=== PATIENT | male | born 1950 | race Caucasian/White ===

== ENCOUNTER → 2017-04-11 09:57 | Outpatient (CLI) | payer OTHER, MEDICARE, SELFPAY ==
[2017-04-11 10:59] LABS: Anion Gap 8 (5-15); BUN 24 mg/dL (7-18); BUN/Creat Ratio 34.2 RATIO (10-20); Calcium,Total 8.7 mg/dL (8.5-10.1); Chloride 106 mmol/L (98-107); EST Glomerular Filtration Rate 119 mL/min (>60); Est Glom Filt Rate - Afr Amer 144 mL/min (>60); Glucose 90 mg/dL (74-106); Potassium 3.5 mmol/L (3.5-5.1); Sodium Level 141 mmol/L (136-145)
== END ==
PROVIDERS: Family Provider Family Medicine; PCP Family Medicine; Visit Provider Internal Medicine Endocrinology, Diabetes & Metabolism
DX: E89.0 Postprocedural hypothyroidism (principal)
CPT/HCPCS: 36415; 80048; 84443

== ENCOUNTER → 2017-04-30 15:18 | Outpatient (CLI) | payer OTHER, SELFPAY ==
[2017-04-30 16:52] LABS: Absolute Lymphocyte Count 2.31 X10^3/ul (0.83-4.51); Absolute Neutrophil Count 2.9 X10^3/uL (2.0-7.7); Basophil# 0.01 X10^3/uL; Basophil% 0.2 % (0-1); Eosinophil# 0.38 X10^3/uL; Eosinophils% 6.3 % (0-5); Hematocrit 45.1 % (40-54); Hemoglobin 15.4 g/dl (13.0-16.5); Lymphocyte # 2.31 X10^3/ul (4.0); Lymphocyte % 38.1 % (19-41); Mean Corp Hgb Conc 34.1 g/gl (32-36); Mean Corpuscular Volume 87.7 fL (80-94); Mean Platelet Vol. 10.7 fl (6.2-12.0); Monocyte# 0.47 X10^3/uL; Monocyte% 7.8 % (0-10); Neutrophil # 2.88 X10^3/uL (2.7-7.7); Neutrophil % 47.4 % (47-70); Platelet Count 289 K/mm3 (150-450); RBC Distribution Width CV 13.2 % (11.6-14.6); Red Blood Count 5.14 M/mm3 (4.6-6.2); White Blood Count 6.1 K/mm3 (4.4-11.0)
[2017-04-30 16:53] LABS: POSITIVE COUNT NO; POSITIVE DIFFERENTIAL NO; POSITIVE MORPHOLOGY NO
[2017-04-30 17:15] LABS: ALB/GLOB Ratio 1.1 RATIO (0.9-2.4); AST(SGOT) 32 U/L (15-37); Alanine Aminotransfer ALT/SGPT 43 U/L (16-61); Albumin, Serum 3.8 g/dL (3.2-5.0); Alkaline Phosphatase 75 U/L (45-117); Anion Gap 7 (5-15); BUN 14 mg/dL (7-18); BUN/Creat Ratio 22.8 RATIO (10-20); Calcium,Total 8.5 mg/dL (8.5-10.1); Chloride 107 mmol/L (98-107); Creatinine, Serum 0.62 mg/dL (0.70-1.30); EST Glomerular Filtration Rate 139 mL/min (>60); Est Glom Filt Rate - Afr Amer 168 mL/min (>60); Globulin 3.6 g/dL (2.2-4.2); Glucose 115 mg/dL (74-106); Potassium 3.5 mmol/L (3.5-5.1); Protein, Total 7.4 g/dL (6.4-8.2); Sodium Level 141 mmol/L (136-145)
== END ==
PROVIDERS: Family Provider Family Medicine; PCP Family Medicine
DX: Z79.899 Other long term (current) drug therapy (principal)
CPT/HCPCS: 36415; 80053; 85025

== ENCOUNTER 2017-05-17 10:35 | Outpatient (RCR) | payer OTHER, SELFPAY ==
--- NOTE | 2017-05-17 11:36 | HP.OTEVAL ---
Patient's Visit Information NIC CAMPOS is a 66 year old M, referred to Occupational Therapy by DR.SMURRA Radha, with a diagnosis of left hand pain. Date of Evaluation: 05/17/17 Occupational Therapist: Lucy Abdi, AMANDAR/Nicola, CHT - Subjective Subjective: pt states his first sign of MS was in 1977 PT states he was dx with MS in 1995 and MS increased in 1997. Pt states his mom and uncle on dads side had MS- pt states he has been using his left hand as a assistive hand for about 10 years. pt states he was mowing the grass about two years ago but has not been able to due to LE weakness- pt states he can no hold anything his left hand for the past 5 years or better. Pt states he has a wrist brace but does not like to use it. - Strength Application Developer Manager: right 75# left 15# Lateral Pinch: right 16# left unable Tripod Pinch: NT left NT - Sensation Sensation Comments: denies at this time - DASH-Disabilities of Arm, Shoulder& Hand DASH Sum: 112 - Goals Goal:: pt will demo a increase in left can pusher sterength by 20# or greater to increase the ability to hold objects for BADLS. Goal:: pt will demo the ability to moss picker and hold a number of different size [id number] increase pts ind. with use of left hand as assistive hand for BADLS - Rehabilitation General Assessment: pt demo left wrist tenodisis grasp and release with his left hand- this is weak and limits pts ability to hold objects. Rehabilitation Potential: Fair - Anticipated Interventions Anticipated Interventions: Strengthening, Orthoses, Education re assistive Equipment - Visit Plan Frequency: 1-2x /Week Duration: 4 Weeks General Plan: will initiate OT services 1-2xweek for 4 weeks to assist with pts strength recovery to engage left UE in use with BADLS and IADL tasks. will work with increasing strenght and ad. modification as needed.- orthosis as needed to prevent skin break down TEXT: Thank you for the opportunity to evaluate your patient. For Medicare and Medicare HMO plans, please review the plan of care and approve it. It will need to be FAXED BACK to us at [phone] for Medicare purposes. Please let me know if there are questions or concerns regarding this plan of care. Physician Signature: Date:
--- NOTE | 2017-07-17 13:38 | HP.OT.NRP ---
HP - Discharge Summary - Patient Information NIC CAMPOS was seen in my office for initial evaluation on 05/17/17. The following Plan of Care was established for this patient: Initial Frequency: 1-2x /Week Initial Duration: 4 Weeks - Anticipated Interventions Anticipated Interventions: Strengthening, Orthoses, Education re assistive Equipment This patient was last seen in our office 05/17/17. Pertinent comments regarding their Occupational therapy will appear below: Pt was seen for eval only- he did not schedule any further apts- pt d/c due to non attendance At this point I will be discontinuing this patient from occupational therapy. I would be happy to see this patient again in the future if found appropriate by the physician. Thank you! Lucy Abdi, OTR/L, CHT
== END 2017-05-17 19:00 | disposition home or self-care (01) ==
LOC: OT 10:35
PROVIDERS: Family Provider Family Medicine; PCP Family Medicine; Visit Provider Family Medicine
DX: M79.642 Pain in left hand (principal)
CPT/HCPCS: 97166

== ENCOUNTER → 2017-07-20 09:25 | Outpatient (CLI) | payer OTHER, SELFPAY ==
[2017-07-20 10:14] LABS: Absolute Lymphocyte Count 1.57 X10^3/ul (0.83-4.51); Absolute Neutrophil Count 3.2 X10^3/uL (2.0-7.7); Basophil# 0.02 X10^3/uL; Basophil% 0.4 % (0-1); Eosinophil# 0.27 X10^3/uL; Eosinophils% 4.8 % (0-5); Hematocrit 44.8 % (40-54); Hemoglobin 15.4 g/dl (13.0-16.5); Lymphocyte # 1.57 X10^3/ul (4.0); Lymphocyte % 27.7 % (19-41); Mean Corp Hgb Conc 34.4 g/gl (32-36); Mean Corpuscular Hgb 29.7 pg (27.0-32.0); Mean Corpuscular Volume 86.3 fL (80-94); Mean Platelet Vol. 10.5 fl (6.2-12.0); Monocyte# 0.55 X10^3/uL; Monocyte% 9.7 % (0-10); Neutrophil # 3.24 X10^3/uL (2.7-7.7); Neutrophil % 57.2 % (47-70); Platelet Count 275 K/mm3 (150-450); RBC Distribution Width SD 40.4 fl (35.1-43.9); Red Blood Count 5.19 M/mm3 (4.6-6.2); White Blood Count 5.7 K/mm3 (4.4-11.0)
[2017-07-20 10:18] LABS: POSITIVE COUNT NO; POSITIVE DIFFERENTIAL NO; POSITIVE MORPHOLOGY NO
[2017-07-20 10:43] LABS: ALB/GLOB Ratio 1.1 RATIO (0.9-2.4); AST(SGOT) 28 U/L (15-37); Alanine Aminotransfer ALT/SGPT 45 U/L (16-61); Albumin, Serum 3.8 g/dL (3.2-5.0); Alkaline Phosphatase 79 U/L (45-117); Anion Gap 9 (5-15); BUN 22 mg/dL (7-18); BUN/Creat Ratio 30.8 RATIO (10-20); Calcium,Total 8.6 mg/dL (8.5-10.1); Chloride 109 mmol/L (98-107); Creatinine, Serum 0.72 mg/dL (0.70-1.30); EST Glomerular Filtration Rate 117 mL/min (>60); Est Glom Filt Rate - Afr Amer 141 mL/min (>60); Globulin 3.4 g/dL (2.2-4.2); Glucose 113 mg/dL (74-106); Potassium 3.8 mmol/L (3.5-5.1); Protein, Total 7.2 g/dL (6.4-8.2); Sodium Level 141 mmol/L (136-145); Thyroid Stim Hormone (TSH) 0.83 uIU/mL (0.358-3.74)
== END ==
PROVIDERS: Family Provider Family Medicine; PCP Family Medicine
DX: Z79.899 Other long term (current) drug therapy (principal)
CPT/HCPCS: 36415; 80053; 84443; 85025

== ENCOUNTER → 2017-10-03 08:30 | Outpatient (CLI) | payer OTHER, SELFPAY ==
[2017-10-03 10:10] LABS: ALB/GLOB Ratio 1.2 RATIO (0.9-2.4); AST(SGOT) 34 U/L (15-37); Alanine Aminotransfer ALT/SGPT 50 U/L (16-61); Albumin, Serum 4.1 g/dL (3.2-5.0); Alkaline Phosphatase 76 U/L (45-117); Anion Gap 9 (5-15); BUN 17 mg/dL (7-18); BUN/Creat Ratio 18.3 RATIO (10-20); Calcium,Total 9.3 mg/dL (8.5-10.1); Chloride 106 mmol/L (98-107); Creatinine, Serum 0.93 mg/dL (0.70-1.30); EST Glomerular Filtration Rate 86 mL/min (>60); Est Glom Filt Rate - Afr Amer 104 mL/min (>60); Globulin 3.5 g/dL (2.2-4.2); Glucose 93 mg/dL (74-106); PSA,Total - Annual Screen 0.55 ng/mL (0.00-4.00); Potassium 4.2 mmol/L (3.5-5.1); Protein, Total 7.6 g/dL (6.4-8.2); Sodium Level 142 mmol/L (136-145)
== END ==
PROVIDERS: Family Provider Family Medicine; PCP Family Medicine; Visit Provider Nurse Practitioner Adult Health
DX: E87.6 Hypokalemia (principal); Z12.5 Encounter for screening for malignant neoplasm of prostate
CPT/HCPCS: 36415; 80053; 84153; G0103

== ENCOUNTER → 2017-11-22 10:14 | Outpatient (CLI) | payer OTHER, SELFPAY ==
[2017-11-22 11:01] LABS: Absolute Lymphocyte Count 1.95 X10^3/ul (0.83-4.51); Absolute Neutrophil Count 3.4 X10^3/uL (2.0-7.7); Basophil# 0.03 X10^3/uL; Basophil% 0.5 % (0-1); Eosinophil# 0.29 X10^3/uL; Eosinophils% 4.9 % (0-5); Hematocrit 45.8 % (40-54); Hemoglobin 15.4 g/dl (13.0-16.5); Lymphocyte # 1.95 X10^3/ul (4.0); Lymphocyte % 32.8 % (19-41); Mean Corp Hgb Conc 33.6 g/gl (32-36); Mean Corpuscular Hgb 29.6 pg (27.0-32.0); Mean Corpuscular Volume 87.9 fL (80-94); Mean Platelet Vol. 10.4 fl (6.2-12.0); Neutrophil # 3.37 X10^3/uL (2.7-7.7); Neutrophil % 56.6 % (47-70); Platelet Count 282 K/mm3 (150-450); RBC Distribution Width SD 41.8 fl (35.1-43.9); Red Blood Count 5.21 M/mm3 (4.6-6.2)
[2017-11-22 11:03] LABS: POSITIVE COUNT NO; POSITIVE DIFFERENTIAL NO; POSITIVE MORPHOLOGY NO
[2017-11-22 11:29] LABS: ALB/GLOB Ratio 1.2 RATIO (0.9-2.4); AST(SGOT) 35 U/L (15-37); Alanine Aminotransfer ALT/SGPT 61 U/L (16-61); Albumin, Serum 3.9 g/dL (3.2-5.0); Alkaline Phosphatase 73 U/L (45-117); Anion Gap 9 (5-15); BUN 23 mg/dL (7-18); BUN/Creat Ratio 30.9 RATIO (10-20); Calcium,Total 9.2 mg/dL (8.5-10.1); Chloride 107 mmol/L (98-107); Creatinine, Serum 0.74 mg/dL (0.70-1.30); EST Glomerular Filtration Rate 111 mL/min (>60); Est Glom Filt Rate - Afr Amer 135 mL/min (>60); Globulin 3.3 g/dL (2.2-4.2); Glucose 111 mg/dL (74-106); Potassium 3.7 mmol/L (3.5-5.1); Protein, Total 7.2 g/dL (6.4-8.2); Sodium Level 144 mmol/L (136-145)
== END ==
PROVIDERS: Family Provider Family Medicine; PCP Family Medicine; Referring Provider Internal Medicine; Visit Provider Internal Medicine
DX: G35 Multiple sclerosis (principal)
CPT/HCPCS: 36415; 80053; 85025

== ENCOUNTER → 2018-01-13 08:47 | Outpatient (CLI) | payer OTHER, SELFPAY ==
[2018-01-13 10:09] LABS: Absolute Lymphocyte Count 1.65 X10^3/ul (0.83-4.51); Absolute Neutrophil Count 3.9 X10^3/uL (2.0-7.7); Basophil# 0.03 X10^3/uL; Basophil% 0.5 % (0-1); Eosinophil# 0.38 X10^3/uL; Eosinophils% 5.7 % (0-5); Hemoglobin 15.5 g/dl (13.0-16.5); Lymphocyte # 1.65 X10^3/ul (4.0); Lymphocyte % 24.8 % (19-41); Mean Corp Hgb Conc 33.7 g/gl (32-36); Mean Corpuscular Volume 89.1 fL (80-94); Mean Platelet Vol. 11.1 fl (6.2-12.0); Monocyte% 10.5 % (0-10); Neutrophil # 3.89 X10^3/uL (2.7-7.7); Neutrophil % 58.3 % (47-70); POSITIVE COUNT NO; POSITIVE DIFFERENTIAL NO; POSITIVE MORPHOLOGY NO; Platelet Count 289 K/mm3 (150-450); RBC Distribution Width CV 13.1 % (11.6-14.6); RBC Distribution Width SD 42.3 fl (35.1-43.9); Red Blood Count 5.16 M/mm3 (4.6-6.2); White Blood Count 6.7 K/mm3 (4.4-11.0)
[2018-01-13 10:58] LABS: ALB/GLOB Ratio 1.1 RATIO (0.9-2.4); AST(SGOT) 29 U/L (15-37); Alanine Aminotransfer ALT/SGPT 52 U/L (16-61); Albumin, Serum 4.1 g/dL (3.2-5.0); Alkaline Phosphatase 80 U/L (45-117); Anion Gap 13 (5-15); BUN 31 mg/dL (7-18); BUN/Creat Ratio 39.3 RATIO (10-20); Calcium,Total 9.4 mg/dL (8.5-10.1); Chloride 105 mmol/L (98-107); Creatinine, Serum 0.79 mg/dL (0.70-1.30); EST Glomerular Filtration Rate 104 mL/min (>60); Est Glom Filt Rate - Afr Amer 126 mL/min (>60); Globulin 3.6 g/dL (2.2-4.2); Glucose 90 mg/dL (74-106); Potassium 3.8 mmol/L (3.5-5.1); Protein, Total 7.7 g/dL (6.4-8.2); Sodium Level 143 mmol/L (136-145)
== END ==
PROVIDERS: Family Provider Family Medicine; PCP Family Medicine
DX: Z79.899 Other long term (current) drug therapy (principal)
CPT/HCPCS: 36415; 80053; 85025

== ENCOUNTER → 2018-02-26 10:40 | Outpatient (CLI) | payer OTHER, SELFPAY ==
[2018-02-26 12:04] LABS: Anion Gap 7 (5-15); BUN 19 mg/dL (7-18); Calcium,Total 8.9 mg/dL (8.5-10.1); Chloride 106 mmol/L (98-107); Creatinine, Serum 0.76 mg/dL (0.70-1.30); EST Glomerular Filtration Rate 108 mL/min (>60); Est Glom Filt Rate - Afr Amer 131 mL/min (>60); Glucose 86 mg/dL (74-106); Potassium 3.9 mmol/L (3.5-5.1); Sodium Level 141 mmol/L (136-145); Thyroid Stim Hormone (TSH) 1.82 uIU/mL (0.358-3.74)
== END ==
PROVIDERS: Family Provider Family Medicine; PCP Family Medicine; Referring Provider Internal Medicine Endocrinology, Diabetes & Metabolism; Visit Provider Internal Medicine Endocrinology, Diabetes & Metabolism
DX: E89.0 Postprocedural hypothyroidism (principal)
CPT/HCPCS: 36415; 80048; 84443

== ENCOUNTER → 2018-02-27 07:53 | Outpatient (CLI) | payer OTHER, SELFPAY ==
--- NOTE | 2018-02-27 07:55 | US_ITS ---
STUDY: RENAL ULTRASOUND - COMPLETE REASON FOR EXAM: Male, 67 years old. Urinary retention. TECHNIQUE: Ultrasound evaluation of the kidneys was performed with real-time and static hoffmann-scale imaging. COMPARISON: CT chest 10/22/2014, 10/08/2013. FINDINGS: RIGHT KIDNEY: 11.4 x 4.6 x 5.5 cm with normal cortical thickness 2.3 cm, normal cortical echotexture. No mass, or cyst, no hydronephrosis. Small calcified densities are present in the renal hilum which could be tiny vascular calcifications or tiny nonobstructing calyceal calculi. LEFT KIDNEY: 10.9 x 4.7 x 6.5 cm with normal cortical thickness 2.1 cm, normal cortical echotexture. No mass, cyst or hydronephrosis. Small hilar calcifications may reflect nonobstructing calyceal calculus or vascular calcification. BLADDER: The urinary bladder is normal in caliber, contour and wall thickness. Maximal thickness 3 mm. Pre-void volume 539 mL. Postvoid 82 mL. Bilateral ureteral jets are visible. US/Kidney and Bladder IMPRESSION: Moderate postvoid residual. Morphologically normal appearance of the urinary bladder with normal wall thickness, without trabeculation. Renal hilar small calcifications may reflect nonobstructing calyceal calculi or vascular calcifications. No hydronephrosis. Otherwise normal kidneys. Electronically Signed: Amarjit Terry MD at 17:57 EST Tel , Service support ,
== END ==
PROVIDERS: Family Provider Family Medicine; PCP Family Medicine; Referring Provider Nurse Practitioner Adult Health; Visit Provider Nurse Practitioner Adult Health
DX: R33.9 Retention of urine, unspecified (principal)
CPT/HCPCS: 76770

== ENCOUNTER → 2018-08-09 11:00 | Outpatient (CLI) | payer MEDICARE, OTHER, SELFPAY ==
[2018-08-09 12:18] LABS: ALB/GLOB Ratio 1.1 RATIO (0.9-2.4); AST(SGOT) 29 U/L (15-37); Alanine Aminotransfer ALT/SGPT 46 U/L (16-61); Alkaline Phosphatase 69 U/L (45-117); Anion Gap 2 (5-15); BUN 19 mg/dL (7-18); BUN/Creat Ratio 23.8 RATIO (10-20); Calcium,Total 9.5 mg/dL (8.5-10.1); Chloride 105 mmol/L (98-107); EST Glomerular Filtration Rate 102 mL/min (>60); Est Glom Filt Rate - Afr Amer 124 mL/min (>60); Globulin 3.7 g/dL (2.2-4.2); Glucose 108 mg/dL (74-106); Potassium 3.9 mmol/L (3.5-5.1); Protein, Total 7.7 g/dL (6.4-8.2); Sodium Level 137 mmol/L (136-145); Thyroid Stim Hormone (TSH) 4.51 uIU/mL (0.358-3.74)
== END ==
PROVIDERS: Family Provider Family Medicine; PCP Family Medicine; Referring Provider Internal Medicine Endocrinology, Diabetes & Metabolism; Visit Provider Internal Medicine Endocrinology, Diabetes & Metabolism
DX: E89.0 Postprocedural hypothyroidism (principal)
CPT/HCPCS: 36415; 80053; 84443

== ENCOUNTER 2020-04-25 06:25 | Outpatient (RCR) | payer MEDICARE, OTHER, SELFPAY ==
[2019-11-18 10:25] VITALS: BMI 27.0
== END 2020-04-25 23:59 ==
LOC: IMMUN 06:25
PROVIDERS: PCP Family Medicine; Visit Provider Family Medicine
DX: Z23 Encounter for immunization (principal)
CPT/HCPCS: 0011A; 0012A

== ENCOUNTER → 2020-11-24 10:31 | Outpatient (CLI) | payer MEDICARE, OTHER, SELFPAY ==
[2020-11-24 11:46] LABS: Vitamin B12 453 pg/mL (211-911); Vitamin D,25 Hydroxy 65.3 ng/mL
[2020-11-24 11:52] LABS: PSA,Total - Annual Screen 1.19 ng/mL (0.00-4.00)
== END ==
PROVIDERS: PCP Family Medicine; Visit Provider Nurse Practitioner Adult Health
DX: R53.82 Chronic fatigue, unspecified (principal); E55.9 Vitamin D deficiency, unspecified; Z12.5 Encounter for screening for malignant neoplasm of prostate
CPT/HCPCS: 36415; 82306; 82607; 84153; G0103

== ENCOUNTER 2023-01-02 10:13 | Inpatient (IN) | payer MEDICARE, OTHER, SELFPAY ==
[2023-01-02] VITALS (12 sets, daily range): BP systolic 110–143; BP diastolic 66–83; PULSE 74–100; RESP 16–20; TEMP 35.9–36.6; O2SAT 93–97; BMI 28.5
[2023-01-02] MEDS: Lactated Ringers 1,000 ML 15 ML IV (06:33)
[2023-01-02] MEDS: Cefazolin 2 GM in 0.9% Normal Saline (100mL Bag) 100 ML IV (08:05)
--- NOTE | 2023-01-02 08:25 | RAD_ITS ---
PROCEDURE: RT PERCUTANEOUS NEPHROSTOLITHOTOMY DATE OF EXAMINATION: January 02, 2023 INDICATION: Male, 72 years old. RT PERCUTANEOUS NEPHROSTOLITHOTOMY PHYSICIAN: Todd Perez MD FLUOROSCOPY TIME (if supplied): ( ) minutes/seconds RADIATION DOSAGE (If Supplied By Facility): CTDIvol = ( ) mGy, DLP = ( ) mGycm CONSENT: The risks, benefits and alternatives to the procedure were explained to the patient, and the patient agreed to the procedure and signed the consent. STERILE BARRIER TECHNIQUE: The following sterile barrier precautions were used during the procedure: hand hygiene; use of 2% chlorhexidine aseptic; use of a cap, mask, sterile gown, sterile gloves, sterile full body drape, and a large sterile sheet. PROCEDURE/TECHNIQUE: (All elements of maximal sterile barrier technique followed, including US elements as applicable) The risks, benefits, and alternatives to the procedure were explained to patient, and the patient agreed to the procedure and signed a consent form for the procedure. A timeout was performed to confirm the patient''s identity, the type of procedure, to be performed and the site of entry. Radiological interpretation: 5 fluoroscopic images of the right kidney/upper quadrant were acquired. The images shows percutaneous intervention with surgical instrumentation and a guidewire/catheter placed into the UPJ and ureter with subsequent contrast opacification which shows mostly normal calyces with one area of slight distention without definitive hydronephrosis. RAD/Fluoroscopy 1 Hr or Less IMPRESSION: 1. Status post fluoroscopic guided right percutaneous nephrostolithotomy refer to the performing urologist operation/procedural no for details and for final impression recommendations. Electronically Signed: Shaggy Soto MD at 13:45 EST ,
--- NOTE | 2023-01-02 09:52 | OP.PCM_ITS ---
Report of Operation Date of Procedure: 01/02/23 Pre-Operative Diagnosis: Right large staghorn calculus greater than 3 cm in size Post-Operative Diagnosis: The same Surgery/Procedure Performed:: Right percutaneous access to the kidney and establishment of a nephrostomy tube tract site Right percutaneous nephrostolithotomy for stone greater than 2.5 cm Right nephrostomy tube placement and nephrostogram Cystoscopy and right retrograde pyelogram interpretation fluoroscopic images Description of Surgical Findings:: Patient was taken back to the operating room after smooth induction of general anesthesia he was placed in dorsolithotomy position. The penis and testicles were prepped and draped in usual sterile fashion he underwent general anesthesia I went into the bladder with a 21 Austrian rigid cystourethroscope once inside the bladder I drained out the bladder we sent off the urine for culture. I then cannulated the right ureteral orifice with a Glidewire advanced this up to the kidney and then over the wire I advanced a ureteral balloon dilator. We left the ureteral balloon dilator in place we performed a retrograde pyelogram and left the the balloon dilator in place so that could do a retrograde to this during the access and then also blocked the ureter from having any stones coming on the ureter. Patient was then Collins catheter was then placed he was then transferred to the cot and then he was positioned facedown on the table with all pressure points padded. And then we did a retrograde pyelogram through the existing balloon catheter to delineate the anatomy we could see the large stone in the midpole calyx branching off to a lower pole calyx and I determined my site of access to be right at the midpole calyx where the big fragment was nephrotomy and then a small fragment was posterior. Through the same calyx. Once the calyx was identified then I used triangulation technique and also bull's-eye technique to guide the two-part stylette needle 18-gauge needle to the site I could then feel the needle right on the stone and I could see the stone the stone move on fluoroscopy we did a retrograde pyelogram again to delineate thousand and the anatomy I then put a Glidewire went and the Glidewire coiled within the collecting system and then I put a Super Stiff wire and coiled this in the collecting system and then over the super Super Stiff wire advanced a 30 Austrian balloon dilator. Once the balloon dilator insufflated then I came in with the nephroscope and I was immediately on top of the first stone we then used the ultrasonic lithotripter to perform lithotripsy on the stone and suction all the fragments as this was coming out we then first took care of the first big fragment this was going from the mid calyx through the calyx into the collecting system is large fragment was then completely removed I then looked around to the second fragment I finally found the branching stone fragment to the lower part office calyx went into this calyx sort of a difficult angle but was able to get into the calyx and got the second fragment completely out after both fragments was removed in total the stone size is greater than 3 3 cm with both fragments be removed successfully under fluoroscopy then I saw some few more fragments that used the flexible scope to identify these and then these were ultrasonic lithotripter was used to pulverize these fragments and removed from at the attic only find 1 tiny fragment but after searching around for quite some time I could not find this fragment at all possible it was outside the kidney. So 99% removal of all the stone that I could see only to 1 tiny fragment that was visible on fluoroscopy but I could not identify it through the nephroscope or the flexible scope so at this point we will leave this little tiny fragment alone and then put a nephrostomy tube into the kidney 3 cc in the balloon performed a nephrostogram see contrast going into the kidney and contrast going down the kidney few blood clots within the collecting system and then secured the nephrostomy tube the patient's back the patient is currently being reversed from anesthesia. Surgeon: Todd Perez Type of Anesthesia: General Drains: nephrostomy tube and collins. Admit VTE Documentation VTE Present on Admission: No VTE Mechan Device Prophylaxis: SCD's VTE Pharm Prophylaxis ordered?: No
--- NOTE | 2023-01-02 10:15 | DCINST_ITS ---
Discharge Instructions Diet Discharge Diet: No restrictions Activity Discharge Activity: Return to Normal Activity and May Not Drive (while taking narcotic pain medications.) Dressing / Incision Call your doctor if you observe: Fever of 101 or Higher Follow Up Care Please Follow Up With: Todd Perez MD When: Call [phone] for an appointment Test Results: Test results from this visit will be discussed in further detail at your follow- up appointment, if applicable. Discharge Plan Admission Primary Reason for Your Visit: right percutaneous removal of stones Attending Provider: Todd Perez Primary Care Provider: Lyndon Chávez Discharge Orders/Prescriptions Prescriptions: New ibuprofen 600 mg tablet 600 mg PO Q6H PRN (Reason: pain (scale score 7-10)) Qty: 20 0RF ciprofloxacin HCl 500 mg tablet 500 mg PO BID Qty: 10 0RF Continued alprazolam 0.25 MG tablet 0.25 mg PO Q6H PRN PRN (Reason: Anxiety) Patient Comments: anxiety hydrocodone-acetaminophen 1 TABLET tablet 1 - 2 tab PO Q6H PRN PRN (Reason: Pain) Patient Comments: pain ergocalciferol (vitamin D2) [Vitamin D2] 50,000 UNIT capsule 50,000 unit PO FR Patient Comments: supplement levetiracetam 500 MG tablet 500 mg PO BID Qty: 90 0RF Patient Comments: seizure multivitamin [Multiple Vitamins] 1 EACH tablet 1 ea PO DAILY zolpidem 5 MG tablet 5 - 10 mg PO QHS clobetasol 15 GM ointment 15 g TP DAILY dutasteride [Avodart] 0.5 MG capsule 0.5 mg PO DAILY tamsulosin 0.4 mg capsule 0.4 mg PO DAILY levothyroxine 125 mcg tablet 125 mcg PO DAILY finasteride 5 mg tablet 5 mg PO DAILY brimonidine 0.2 % drops 2 drp ophthalmic (eye) BID latanoprost 0.005 % drops 1 drp ophthalmic (eye) QHS Referrals / Follow Up: Todd Perez MD [Med Staff - Active Staff] - Lyndon Chávez MD [Primary Care Provider] - Disposition Disposition (needs filled in before D/C Order can be placed): Home, Self Care
--- NOTE | 2023-01-02 10:15 | HP.PCM_ITS ---
HPI - General General Date of Service: 01/02/23 Chief Complaint: Right large staghorn calculus HPI Narrative NIC CAMPOS, is a 72 M who presents for a percutaneous right nephrostolithotomy [facility] Medical History (Updated 12/25/22 @ 09:14 by Radha Martins) Alcohol use Arthritis Cancer Cerebral palsy Enlarged prostate Former smoker High cholesterol History of edema History of melanoma History of steroid therapy History of stress test Hypertension Kidney stone Leg cramps Multiple sclerosis Seizures Thyroid disease Uses wheelchair Wears glasses Home Medications alprazolam 0.25 mg tablet 0.25 mg PO Q6H PRN PRN Anxiety 11/25/12 [History Last Taken Unknown] ergocalciferol (vitamin D2) 1,250 mcg (50,000 unit) capsule (Vitamin D2) 50,000 unit PO FR 10/17/15 [History Last Taken Unknown] hydrocodone-acetaminophen 5-325mg 5mg-325mg 1 - 2 tab PO Q6H PRN PRN Pain 10/17/15 [History Last Taken Unknown] levetiracetam 500 mg tablet 500 mg PO BID ##90 10/19/15 [Rx Last Taken 01/02/23] clobetasol 0.05 % topical ointment 15 g TP DAILY 12/24/16 [History Last Taken Unknown] dutasteride 0.5 mg capsule (Avodart) 0.5 mg PO DAILY 12/24/16 [History Last Taken Unknown] multivitamin (Multiple Vitamins tablet) 1 ea PO DAILY 12/24/16 [History Last Taken Unknown] zolpidem 5 mg tablet 5 - 10 mg PO QHS 12/24/16 [History Last Taken Unknown] brimonidine 0.2 % eye drops 2 drp ophthalmic (eye) BID 12/25/22 [History Last Taken Unknown] finasteride 5 mg tablet 5 mg PO DAILY 12/25/22 [History Last Taken Unknown] latanoprost 0.005 % eye drops 1 drp ophthalmic (eye) QHS 12/25/22 [History Last Taken Unknown] levothyroxine 125 mcg tablet 125 mcg PO DAILY 12/25/22 [History Last Taken 01/02/23] tamsulosin 0.4 mg capsule 0.4 mg PO DAILY 12/25/22 [History Last Taken Unknown] ciprofloxacin HCl 500 mg tablet 500 mg PO BID #10 tabs 01/02/23 [Rx Last Taken Unknown] ibuprofen 600 mg tablet 600 mg PO Q6H PRN pain (scale score 7-10) #20 tabs 01/02/23 [Rx Last Taken Unknown] Allergy/AdvReac Type Severity Reaction Status Date / Time glatiramer acetate Allergy Anaphylaxis Verified 01/02/23 06:28 [From Copaxone] Surgical History (Updated 12/25/22 @ 09:14 by Radha Martins) History of esophagogastroduodenoscopy (EGD) Hx laparoscopic cholecystectomy Hx of appendectomy Hx of colonoscopy Hx of hernia repair Hx of surgical procedure Social History Smoking Status: Former smoker Vital Signs Vital Signs Vital Signs: 01/02/23 06:29 01/02/23 06:29 Temperature 97.9 F Temperature Source Temporal Pulse Rate 82 Respiratory Rate 18 Respiratory Pattern Normal Blood Pressure 136/77 H Blood Pressure Mean 96 Blood Pressure Source Monitor Blood Pressure Position Semi-Fowlers Blood Pressure Location Right Arm Pulse Ox 96 Oxygen Delivery Method Room Air Weight Weight: 98 kg Body Mass Index (BMI) 28.5
[2023-01-02] MEDS: Lactated Ringers 1,000 ML 125 ML IV ×2 (11:35→21:19)
[2023-01-02] MEDS: Ondansetron 4 MG/2 ML Vial IV (13:23)
[2023-01-02] MEDS: Ketorolac 15 MG/ML Vial IV ×2 (13:23→19:31)
[2023-01-02] MEDS: 0.9% Saline Lock 10 ML Syringe IV ×2 (13:23→19:31)
[2023-01-02] MEDS: Ciprofloxacin 400 MG/200 ML BAG 200 MG IV (16:43)
[2023-01-02] MEDS: Tamsulosin HCl 0.4 MG Capsule PO (18:37)
[2023-01-02] MEDS: levETIRAcetam 500 MG Tablet PO (21:19)
[2023-01-02] MEDS: Docusate Sodium 100 MG Capsule 200 MG PO (21:19)
[2023-01-02] MEDS: Zolpidem Tartrate 5 MG Tablet PO (21:20)
[2023-01-02] MEDS: Latanoprost 0.005% 1 Bottle 1 DRP OPHTHALMIC (21:21)
[2023-01-03] MEDS: Zolpidem Tartrate 5 MG Tablet PO (00:09)
[2023-01-03] MEDS: Acetaminophen 325 MG Tablet PO (00:12)
[2023-01-03] MEDS: Levothyroxine 125 MCG Tablet PO (04:55)
[2023-01-03] MEDS: Ciprofloxacin 400 MG/200 ML BAG 200 MG IV (04:55)
[2023-01-03] MEDS: Ketorolac 15 MG/ML Vial IV ×2 (04:58→17:38)
[2023-01-03] MEDS: Lactated Ringers 1,000 ML 125 ML IV ×3 (04:58→21:54)
[2023-01-03 05:06] VITALS: BP 123/64; PULSE 71; RESP 18; TEMP 36.6; O2SAT 96
--- NOTE | 2023-01-03 07:34 | PCM.PN.GU ---
Subjective Subjective Status post right percutaneous removal of large staghorn calculus, we can remove his catheter for a voiding trial, I did clamp his nephrostomy tube today and we will see how he tolerates clamping trial for the next 24 hours possible discharge home tomorrow Objective Data Objective Data Vital Signs: Vital Signs Temp Pulse Resp BP Pulse Ox O2 Del Method 97.9 F 71 18 123/64 H 96 Room Air 01/03/23 05:06 01/03/23 05:06 01/03/23 05:06 01/03/23 05:06 01/03/23 05:06 01/03/23 05:06 Oxygen Delivery Method Room Air Weight: 98 kg Body Mass Index (BMI) 28.5 Intake & Output: Intake and Output for Last 24 Hours 01/01/23 01/02/23 01/03/23 23:59 23:59 23:59 Intake Total 2391.50 / 2391.50 1156.25 / 1156.25 Output Total 1265 / 1265 500 / 500 Balance 1126.50 / 1126.50 656.25 / 656.25 Radiography Diagnostic Testing: Radiology Impression Fluoroscopy 01/02/23 08:25 IMPRESSION: 1. Status post fluoroscopic guided right percutaneous nephrostolithotomy refer to the performing urologist operation/procedural no for details and for final impression recommendations. Electronically Signed: Shaggy Soto MD at 13:45 EST Reading Location ID and State: [facility] [place] , Service support ,
[2023-01-03] MEDS: Docusate Sodium 100 MG Capsule 200 MG PO ×2 (08:38→21:53)
[2023-01-03] MEDS: levETIRAcetam 500 MG Tablet PO ×2 (08:38→21:53)
[2023-01-03] MEDS: Finasteride 5 MG Tablet PO (08:39)
[2023-01-03] MEDS: Clobetasol Propionate 0.05% Ointment 1 APPLIC TOPICAL (08:41)
[2023-01-03 09:10] VITALS: BP 112/56; PULSE 79; RESP 18; TEMP 36.4; O2SAT 98
--- NOTE | 2023-01-03 09:40 | CASEMGMT ---
Social Work SW met with pt to discuss advance directives.? Pt confirms he has completed a living will and health care POA naming his Cindy Moses.? Pt notified that documents are not on file at [facility] and SW requested they be brought in for scanning into the EMR.? EHSAN Toney
--- NOTE | 2023-01-03 11:15 | CASEMGMT ---
ROYA BAILEY Assessment: Pt. sitting on toilet but tells RN LEO to coinue with initial transition planning/care coordination assessment. Pt's is also present at the bedside. ROYA BAILEY introduced self and role at [facility], pt voices understanding and consents to assessment. Some of the following information is obtained from the . Pt is A&O x4 and answers all questions appropriately at this time. Care providers, pharmacy, and demographics verified/updated. Admitting Dx: Right Percutaneous, Nephrolithotomy PCP: [facility] Specialists: Multiple Sclerosis Specialist ([facility] in [place]), Ghanshyam (Urologist), Pricilla (Epileptologist in [facility]), Sreedhar (Interface Developer in [place]) Preferred Pharmacy:[facility] ([place]) Insurance: [facility] A & B Prescription Benefit: yes LNOK: Cindy Moses () Living Arrangements: Pt lives with in a 1 story home [facility], with a ramp and railing to enter. There is also a staircase to the basement with a railing but pt. states he hardly uses this. He states he does not normally do steps but if needed, his assists him. Prior to this admission, pt. states he was I in ADLs and his mainly takes care of IADLs, but if he can do the IADL from his motorized chair, he will do it (such as unloading loan administrator). Transportation: (pt. states they have a handicap accessible van) DME: Shower chair, raised toilet seat, cane, crutches, motorized cart (pt. states he uses this 90% of the time), lift chair, grab bars, hand held shower, walker, W/C, pulse ox. Pt. decline to receive information on medical alert systems. Pt. denies need for additional DME at this time. HHC/SNF: Denies previous SNF. States he had HHC in 2019 (unsure of company name). Pt states no concerns with going home at time of dc. Pt states no further concerns/needs. CM to follow. Advised pt to ask CM if any further question/concerns/needs arise, voices understanding. Pt Goal: Home with family support and follow-up plans in place. Plan: Home vs. home with HHC. Follow PT/OT (board in room states x2 assist with walker).
[2023-01-03 15:00] VITALS: BP 124/71; PULSE 80; RESP 16; TEMP 36.7; O2SAT 98
--- NOTE | 2023-01-03 15:40 | CASEMGMT ---
RN LEO informed that pt. wanted to speak with CM. ROYA BAILEY in to pt. room. We discussed that PT/OT has been ordered for pt. to evaluate him and that we will follow PT/OT to see their recommendations. Pt. is agreeable to this and does not voice any further questions/concerns.
[2023-01-03] MEDS: Tamsulosin HCl 0.4 MG Capsule PO (17:31)
[2023-01-03] MEDS: 0.9% Saline Lock 10 ML Syringe IV (17:38)
[2023-01-03 20:20] VITALS: BP 138/76; PULSE 94; RESP 16; TEMP 36.8; O2SAT 95
[2023-01-03] MEDS: Ondansetron 4 MG/2 ML Vial IV (21:53)
[2023-01-03] MEDS: Latanoprost 0.005% 1 Bottle 1 DRP OPHTHALMIC (21:55)
[2023-01-04 03:11] VITALS: BP 151/87; PULSE 107; RESP 16; TEMP 36.5; O2SAT 96
[2023-01-04] MEDS: Ketorolac 15 MG/ML Vial IV (03:22)
[2023-01-04] MEDS: Lactated Ringers 1,000 ML 125 ML IV (05:36)
[2023-01-04] MEDS: Levothyroxine 125 MCG Tablet PO (05:38)
[2023-01-04 07:32] VITALS: O2SAT 95
--- NOTE | 2023-01-04 08:48 | PCM.DC.SUM ---
Providers Date of Admission: 01/02/23 Date of Discharge: 01/04/23 Primary Care Physician: Dr. Lyndon Chávez MD Reason For Visit: Right Percutaneous, Nephrostolithom Medications at Discharge Home Medications alprazolam 0.25 mg tablet 0.25 mg PO Q6H PRN PRN Anxiety 11/25/12 ergocalciferol (vitamin D2) 1,250 mcg (50,000 unit) capsule (Vitamin D2) 50,000 unit PO FR 10/17/15 hydrocodone-acetaminophen 5-325mg 5mg-325mg 1 - 2 tab PO Q6H PRN PRN Pain 10/17/15 levetiracetam 500 mg tablet 500 mg PO BID ##90 10/19/15 clobetasol 0.05 % topical ointment 15 g TP DAILY 12/24/16 dutasteride 0.5 mg capsule (Avodart) 0.5 mg PO DAILY 12/24/16 multivitamin (Multiple Vitamins tablet) 1 ea PO DAILY 12/24/16 zolpidem 5 mg tablet 5 - 10 mg PO QHS 12/24/16 brimonidine 0.2 % eye drops 2 drp ophthalmic (eye) BID 12/25/22 finasteride 5 mg tablet 5 mg PO DAILY 12/25/22 latanoprost 0.005 % eye drops 1 drp ophthalmic (eye) QHS 12/25/22 levothyroxine 125 mcg tablet 125 mcg PO DAILY 12/25/22 tamsulosin 0.4 mg capsule 0.4 mg PO DAILY 12/25/22 ciprofloxacin HCl 500 mg tablet 500 mg PO BID #10 tabs 01/02/23 ibuprofen 600 mg tablet 600 mg PO Q6H PRN pain (scale score 7-10) #20 tabs 01/02/23 Hospital Course Summary of Care Provided Hospital Course: Status post percutaneous nephrostolithotomy on the right side approximate tube removed prior to discharge it was clamped 24 hours, he was still not able to urinate postop so he will go home with a Koch catheter. The family can remove the catheter next week I can see in 1 week for checkup Physical Exam Const alert and oriented x3 General Appearance: cooperative HEENT normocephalic and head/scalp atraumatic Eyes PERRL and EOMs intact bilaterally Neck supple, no JVD and no carotid bruits Resp normal respiratory effort, normal air movement and clear to auscultation bilaterally Cardio regular rate and no murmurs GI normal to inspection, nondistended, normoactive bowel sounds and soft to palpation Extremity normal capillary refill General Extremity: no tenderness to palpation of joints or extremities; Negative for edema Skin no rashes or lesions noted and no wounds General Skin Exam: no breakdown Neuro CN's II-XII intact bilaterally Psych affect normal Appearance: appropriate Weight / BMI Weight Weight: 98 kg Body Mass Index (BMI) 28.5 D/C Instructions Discharge Diet: No restrictions Call your doctor if you observe: Fever of 101 or Higher Please Follow Up With: Todd Perez MD When: Call [phone] for an appointment Meaningful Use Info Meaningful Use Diagnoses (Choose all that apply): None applicable Discharge Plan Admission Admit Date/Time: 01/02/23 10:13 Primary Reason for Your Visit: right percutaneous removal of stones Attending Provider: Todd Perez Primary Care Provider: Lyndon Chávez Discharge Orders/Prescriptions Prescriptions: New ibuprofen 600 mg tablet 600 mg PO Q6H PRN (Reason: pain (scale score 7-10)) Qty: 20 0RF ciprofloxacin HCl 500 mg tablet 500 mg PO BID Qty: 10 0RF Continued alprazolam 0.25 MG tablet 0.25 mg PO Q6H PRN PRN (Reason: Anxiety) Patient Comments: anxiety hydrocodone-acetaminophen 1 TABLET tablet 1 - 2 tab PO Q6H PRN PRN (Reason: Pain) Patient Comments: pain ergocalciferol (vitamin D2) [Vitamin D2] 50,000 UNIT capsule 50,000 unit PO FR Patient Comments: supplement levetiracetam 500 MG tablet 500 mg PO BID Qty: 90 0RF Patient Comments: seizure multivitamin [Multiple Vitamins] 1 EACH tablet 1 ea PO DAILY zolpidem 5 MG tablet 5 - 10 mg PO QHS clobetasol 15 GM ointment 15 g TP DAILY dutasteride [Avodart] 0.5 MG capsule 0.5 mg PO DAILY tamsulosin 0.4 mg capsule 0.4 mg PO DAILY levothyroxine 125 mcg tablet 125 mcg PO DAILY finasteride 5 mg tablet 5 mg PO DAILY brimonidine 0.2 % drops 2 drp ophthalmic (eye) BID latanoprost 0.005 % drops 1 drp ophthalmic (eye) QHS Referrals / Follow Up: Todd Perez MD [Med Staff - Active Staff] - Lyndon Chávez MD [Primary Care Provider] - Disposition Discharge Orders: Discharge Patient (Routine); Ordered 01/04/23 Ordered By: Dr. Todd Perez
[2023-01-04 08:59] VITALS: BP 140/96; PULSE 89; RESP 18; TEMP 36.5; O2SAT 98
[2023-01-04] MEDS: Finasteride 5 MG Tablet PO (09:05)
[2023-01-04] MEDS: levETIRAcetam 500 MG Tablet PO (09:05)
[2023-01-04] MEDS: Docusate Sodium 100 MG Capsule 200 MG PO (09:05)
--- NOTE | 2023-01-04 10:11 | PHA.DC.MC.R ---
Pharmacy [facility] has performed discharge medication reconciliation and counseling for this patient. The patient's discharge medication list was reviewed for discrepancies and discrepancies were resolved. The patient was counseled on the following discharge medications and changes in medications for homegoing were reviewed. The Reason for Use, instructions for use, and potential side effects were reviewed for all new medications. The patient's questions regarding all of their medications were answered. 1. Ciprofloxacin 500 mg PO BID x 5 days 2. Ibuprofen 600 mg PO Q6H PRN pain The patient was able to verbally demonstrate an understanding of their discharge medications. The patient was counselled on new medications by pharmacy retail support specialist Hunter. Medications at Discharge Home Medications alprazolam 0.25 mg tablet 0.25 mg PO Q6H PRN PRN Anxiety 11/25/12 ergocalciferol (vitamin D2) 1,250 mcg (50,000 unit) capsule (Vitamin D2) 50,000 unit PO FR 10/17/15 hydrocodone-acetaminophen 5-325mg 5mg-325mg 1 - 2 tab PO Q6H PRN PRN Pain 10/17/15 levetiracetam 500 mg tablet 500 mg PO BID ##90 10/19/15 clobetasol 0.05 % topical ointment 15 g TP DAILY 12/24/16 dutasteride 0.5 mg capsule (Avodart) 0.5 mg PO DAILY 12/24/16 multivitamin (Multiple Vitamins tablet) 1 ea PO DAILY 12/24/16 zolpidem 5 mg tablet 5 - 10 mg PO QHS 12/24/16 brimonidine 0.2 % eye drops 2 drp ophthalmic (eye) BID 12/25/22 finasteride 5 mg tablet 5 mg PO DAILY 12/25/22 latanoprost 0.005 % eye drops 1 drp ophthalmic (eye) QHS 12/25/22 levothyroxine 125 mcg tablet 125 mcg PO DAILY 12/25/22 tamsulosin 0.4 mg capsule 0.4 mg PO DAILY 12/25/22 ciprofloxacin HCl 500 mg tablet 500 mg PO BID #10 tabs 01/02/23 ibuprofen 600 mg tablet 600 mg PO Q6H PRN pain (scale score 7-10) #20 tabs 01/02/23
--- NOTE | 2023-01-04 10:34 | CASEMGMT ---
Addendum entered by Amanda Rahman 01/04/23 14:42: Received tc back from Becki at [facility] requesting SN being added to referral. Order entered. Pt will be seen on Saturday and they will notify pt of this change. Addendum entered by Amanda Rahman 01/04/23 12:21: [facility] accepted pt for care starting on Saturday. Updated pt and . Addendum entered by Amanda Rahman 01/04/23 11:57: [id number]-ROYA BAILEY into pt room, pt chooses [facility] for HHC. TC to [facility], left message on intake voicemail with referral. Will await returned call. Original Note: Therapy made RN LEO aware pt is interested in HHC. ROYA BAILEY into pt room. Patient was provided a list of [facility] providers including quality and resource use data and consistent with the patient?s preferred geographic region, medical needs, and insurance network were provided from the [employer] Guide. Pt and to review and ROYA BAILEY will check back on choices.
[2023-01-04 13:32] VITALS: BP 123/75; PULSE 78; RESP 18; TEMP 36.7; O2SAT 97
== END 2023-01-04 13:40 | disposition home or self-care (01) | DRG 660 ==
LOC: MS3 17:43 → SDC 01-03 10:27 → MS3 01-03 10:27
PROVIDERS: Admitting Provider Urology; PCP Family Medicine; Referring Provider Urology; Visit Provider Urology
PROC: 0TC34ZZ Extirpation of Matter from Right Kidney Pelvis, Percutaneous Endoscopic Approach (ICD-10-PCS; principal; 2023-01-02 07:40)
DX: N20.0 Calculus of kidney (principal); N13.8 Other obstructive and reflux uropathy; G35 Multiple sclerosis; I10 Essential (primary) hypertension; E78.00 Pure hypercholesterolemia, unspecified; R33.9 Retention of urine, unspecified; Z79.890 Hormone replacement therapy; Z79.899 Other long term (current) drug therapy; Z87.891 Personal history of nicotine dependence; N40.1 Benign prostatic hyperplasia with lower urinary tract symptoms
CPT/HCPCS: 76000; 87077; 87086; 87088; 87186; 97162; 97166; J7120; A4216; C1769; J0744; J2405